=== PATIENT | female | born 1990 | race Caucasian/White ===

== ENCOUNTER 2019-02-12 22:55 | Emergency (ER) | payer SELFPAY ==
[~2019-02-12] VITALS: Ht 167.6 cm; Wt 65.0 kg
[2019-02-13 01:49] VITALS: BP 120/55
== END 2019-02-13 01:51 | disposition home or self-care (01) ==
LOC: ER 22:55
DX: B34.9 Viral infection, unspecified (principal); R05 Cough; R68.83 Chills (without fever); R07.89 Other chest pain; Z88.8 Allergy status to other drugs, medicaments and biological substances
CPT/HCPCS: 81025; 99283

== ENCOUNTER 2024-06-17 19:42 | Emergency (ER) | payer MEDICAID ==
[~2024-06-17] VITALS: Ht 162.6 cm; Wt 72.0 kg
[2024-06-17 19:51] VITALS: TEMP 98.4; O2SAT 100
[2024-06-17 20:26] LABS: CLARITY URINE CLEAR (CLEAR); COLOR URINE YELLOW (YELLOW); GLUCOSE URINE NEGATIVE (NEGATIVE); KETONES URINE NEGATIVE (NEGATIVE); LEUKOCYTE ESTERASE URINE NEGATIVE (NEGATIVE); NITRITE URINE NEGATIVE (NEGATIVE); OCCULT BLOOD URINE NEGATIVE (NEGATIVE); PROTEIN URINE NEGATIVE (NEGATIVE); SPECIFIC GRAVITY URINE 1.013 (1.005-1.030); UROBILINOGEN URINE 0.2 E.U./dL (0.2-1.0)
[2024-06-17] MEDS ORDERED: CEPH500C2 MT (20:55)
[2024-06-17 21:23] VITALS: BP 132/70; PULSE 80; RESP 17; O2SAT 99
== END 2024-06-17 21:24 | disposition home or self-care (01) ==
LOC: ER 19:42
DX: N39.0 Urinary tract infection, site not specified (principal)
CPT/HCPCS: 81003; 99283